=== PATIENT | male | born 1945 | race Asian ===

== ENCOUNTER 2017-03-08 16:49 | Emergency (ER) | payer OTHER, MEDICARE, MEDICAID ==
[~2017-03-08] VITALS: Ht 165.1 cm; Wt 52.3 kg
[~2017-03-08 16:49] MED LIST: ADV250INHA IH; ALBU8.5H4 IH; CETI10CA PO; COR200 PO; COR625 PO; COZ25 PO; DIGO125T PO; IPRA30SP NS; IPRA3AMP HHN; SMV40T PO; SPIR25TA PO; SYN.1T2 PO; TAM4 PO; TOPR25T PO; VITA1TAB31 PO
[2017-03-08 17:02] VITALS: BP 153/81; PULSE 75; RESP 24; O2SAT 96
--- NOTE | 2017-03-08 18:20 | ED.REPORT ---
HPI-Dyspnea / Wheezing Date of Service March 08, 2017 ED Provider: Landen Emery DO A 71 year old male with a history of COPD, CHF, and intraparenchymal hemorrhage of the brain presents to the ED with shortness of breath onset yesterday. The patient also reports pleuritic chest pain. He denies cough, fever, or other symptoms. The patient has had similar symptoms in the past and has used a Symbicort inhaler, with relief. Nursing Notes Stated Complaint: HARD TO BREATH Chief Complaint: Respiratory Complaints Nursing Notes Reviewed: Yes Allergies: Coded Allergies: piperacillin sodium (Verified Allergy, Severe, Red in color, rash, happened in ER. , 03/08/17) Had to treat reaction in ER r/t allergy to Zosyn. tazobactam sodium (Verified Allergy, Severe, Red in color, rash, happened in ER. , 03/08/17) Had to treat reaction in ER r/t allergy to Zosyn. Scheduled Albuterol Sulfate/Ipratropium (Duoneb 2.5-0.5MG/3ML Soln) 3 Ml Nebu 3 ML HHN BID Amiodarone-Expunged Drug, Do Not Renew! (Amiodarone-Expunged Drug, Do Not Renew! ) 200 Mg Tablet 200 MG PO DAILY Carvedilol-Expunged Drug, Do Not Renew! (Carvedilol-Expunged Drug, Do Not Renew! ) 6.25 Mg Tablet 6.25 MG PO BIDWM Cetirizine-Expunged Drug, Do Not Renew! (Cetirizine-Expunged Drug, Do Not Renew! ) 10 Mg Capsule 10 MG PO DAILY Digoxin-Expunged Drug, Do Not Renew! (Digoxin-Expunged Drug, Do Not Renew!) 125 Mcg Tablet 0.125 MG PO DAILY Flutic/Salmet-Expunged Drug, Do Not Renew! (Advair 250/50-Expunged Drug, Do Not Renew!) 250 Mcg/50 Mcg Disk 250 MCG IH BID Ipratropium-Expunged Drug, Do Not Renew! (Ipratropium-Expunged Drug, Do Not Renew!) 345 [place]/30 Ml [place] 1 SPRAY NS DAILY Levothyroxine-Expunged Drug, Do Not Renew! (Synthroid-Expunged Drug, Do Not Renew!) 100 Mcg Tablet 0.05 MG PO DAILYAC 0.1 MG = 100 MCG Losartan-Expunged Drug, Do Not Renew! (Losartan-Expunged Drug, Do Not Renew!) 25 Mg Tablet 25 MG PO DAILY Therapeutic Substitue for all ARB class drugs Metoprolol Suc-Expunged Drug, Do Not Renew! (Metoprolol Suc-Expunged Drug, Do Not Renew!) 25 Mg Tber 12.5 MG PO DAILY Simvastatin-Expunged Drug, Choose New Med! (Simvastatin-Expunged Drug, Choose New Med!) 40 Mg Tablet 20 MG PO HS Spironolactone-Expunged Drug, Do Not Renew! (Spironolactone-Expunged Drug, Do Not Renew!) 25 Mg Tablet 25 MG PO DAILY Tamsulosin-Expunged Drug, Do Not Renew! (Flomax-Expunged Drug, Do Not Renew!) 0.4 Mg Capsule 0.4 MG PO HS Vitamin B Complex (Balanced B-100) 1 Each Tablet 1 EACH PO DAILY Scheduled PRN Albuterol-Expunged Drug, Do Not Renew! (Albuterol-Expunged Drug, Do Not Renew!) 8.5 Gm Hfa.aer.ad 2 PUFFS IH Q4 PRN PRN 2 PUFFS EVERY 4 HOURS NEEDED FOR SHORTNESS OF BREATH. General Time Seen by MD: 18:11 Chief Complaint Shortness of breath Hx Obtained From: Patient Arrived By: Walk-in Sudden in Onset?: No Onset Occurred: Yesterday Symptom Duration: Since onset Location: : Chest left: Chest right Quality: Painful, Pleuritic Severity: Current: Moderate Severity: Maximum: Moderate Pertinent Negative: Relieved by nothing Context Related History: Reports: COPD, Congestive heart failure Recent Healthcare: No recent doctor visit Similar Sx Previous: Yes Past Medical History Past Medical History COPD CHF Intraparenchymal hemorrhage of brain Past Surgical History Cardiac pacemaker placement Smoking History Former Smoker Social History Other Social History: Good social support Ambulatory Status Independent Review of Systems Constitutional: Denies: Fever Respiratory: Reports: Pleuritic pain, Shortness of breath, Denies: Non-productive cough Cardiovascular: Reports: Chest pain Complete sys rev & neg: except as marked. GI: Denies: Diarrhea, Vomiting Physical Exam Initial Vital Signs Vital Signs (First) Date Time Temp Pulse Resp B/P Pulse Ox O2 Delivery O2 Flow Rate FiO2 5/8/17 17:02 75 24 153/81 96 Room Air Initial VS: Reviewed Head / Eyes: Atraumatic, Normocephalic ENT: Conjunctiva normal, No scleral icterus Skin: Warm, Dry, No cyanosis Neurologic: Alert, Oriented, Nonfocal Psychiatric: Mood/affect normal, Behavior normal, Normal thought content General/Constitutional: Awake, Alert Distress / Hydration: Positive: Distress moderate Neck: Supple, Full range of motion Respiratory / Chest: No rales, No rhonchi, No wheezing Diminished Breath Sounds: Positive: Decreased bilateral Pursed lip breathing Barrel chest Cardiovascular: Heart rate NL, Regular rhythm Heart Sounds / Murmur: Positive: Systolic murmur present.. (Ejection murmur) Lower Extremity / Pelvis / MS: Inspection NL, No edema Interpretation & Diagnostics Lab Results Interpretation Result Diagram: 03/08/17192903/08/171929 Test 03/08/17 19:30 03/08/17 21:16 03/08/17 21:40 White Blood Count 9.7th/mm3 (3.8-10.1) Red Blood Count 5.44mil/mm3 (4.40-5.80) Hemoglobin 15.3g/dL (13.8-17.2) Hematocrit 46.5% (41.0-50.0) Mean Corpuscular Volume 85.5fL (81-100) Mean Corpuscular Hemoglobin 28.1pg (27.0-35.0) Mean Corpuscular Hemoglobin Concent 32.9% (32.0-37.0) Red Cell Distribution Width 14.1% (12.3-15.4) Platelet Count 174bil/L (150-400) Neutrophils (%) (Auto) 72.3% (40-74) Lymphocytes (%) (Auto) 17.6% (14-46) Monocytes (%) (Auto) 8.4% (4-12) Eosinophils (%) (Auto) 1.3% (0-5) Basophils (%) (Auto) 0.2% (0-3) Prothrombin Time 10.2sec (8.1-12.5) Prothromb Time International Ratio 0.95ratio D-Dimer 1.25mg/L FEU (<0.50) Sodium Level 140mEq/L (134-144) Potassium Level 5.2mEq/L (3.5-5.2) Chloride Level 99mEq/L (97-108) Carbon Dioxide Level 26mmol/L (18-29) Blood Urea Nitrogen 23mg/dL (8-27) Creatinine 1.22mg/dL (0.76-1.27) Estimat Glomerular Filtration Rate 62mL/min (>59) Glucose Level 106mg/dL (60-99) Calcium Level 9.8mg/dL (8.5-10.1) Total Bilirubin 0.8mg/dL (0.0-1.2) Aspartate Amino Transf (AST/SGOT) 68U/L (0-50) Alanine Aminotransferase (ALT/SGPT) 86U/L (0-44) Alkaline Phosphatase 110U/L (25-160) Pro-B-Type Natriuretic Peptide 4680pg/mL (0-376) Total Protein 7.7g/dL (6.4-8.4) Albumin 4.2g/dL (3.4-5.0) Troponin T 0.010ug/L (0.0-0.011) Urine Color Straw (YELLOW) Urine Appearance Clear (CLEAR,HAZY) Urine pH 5.5 (5.0-8.0) Urine Specific [place] 1.006 (1.003-1.035) Urine Protein Negativemg/dL (NEG,TRACE) Urine Glucose (UA) Negativemg/dL (NEGATIVE) Urine Ketones Negativemg/dL (NEGATIVE) Urine Occult Blood Trace (NEGATIVE) Urine Nitrite Negative (NEGATIVE) Urine Bilirubin Negative (NEGATIVE) Urine Urobilinogen Normalmg/dL (NORMAL) Urine Leukocyte Esterase Negative (NEGATIVE) Urine RBC 3-10/hpf (0-2) Urine WBC 0-5/hpf (0-5) Urine Epithelial Cells Occasional/hpf (NONE-MOD) Urine Crystals None seen (NONE SEEN) Urine Bacteria None/hpf (NONE-FEW) Urine Hyaline Casts None/lpf (NONE) Urine Granular Casts None seen (NONE SEEN) Urine Waxy Casts None seen (NONE SEEN) Urine Red Blood Cell Casts None seen (NONE SEEN) Urine White Blood Cell Casts None seen (NONE SEEN) Urine Mucus None seen (None Seen) Urine Trichomonas None seen (NONE SEEN) Urine Yeast None (NONE SEEN) Urine Culture Reflexed Not indicated ECG Interpretation ECG Interpretation: Atrial flutter with predominant 4:1 AV block Right axis deviation Prolonged QT interval Time: 18:39 Interpreted by: ED physician X-Ray Chest Interpretation Chest Xray Interpretation: IMPRESSION: Stable interval exam compared to 03/07/17 demonstrating chronic interstitial prominence. Dictated by: Ann Mooney M.D. on 03/08/2017 at 19:00 View: Portable, 1 view Interpretation / Wet Read by: Interpret - Radiologist CT Chest Interpretation CONCLUSION: No evidence of pulmonary embolism. Emphysema and a 1 cm spiculated nodule in the right upper lobe. Neoplasm must be excluded. Moderate cardiomegaly. Report transmitted to ED by Orin Rossi M.D. at 03/08/2017 - 11:03:15 PM PDT Study type: CT pulm angiogram Interpretation / Wet Read by: Interpret - Radiologist Re-Eval/Medical Decision Med Decision/Clinical Course 71-year-old male with a history of CHF and COPD presents with shortness of breath. He has had difficulty catching his breath for the past 2 days. He also has a mild cough. On examination he had pursed lip breathing diminished breath sounds bilaterally. He was not acutely toxic in appearance. He was treated with DuoNeb, steroids and diuretics. He improved dramatically. At discharge he could take nice deep breath. His lungs were clear and he was asymptomatic. He preferred to be discharged home. Pulmonary emboli was ruled out. Myocardial infarction was ruled out. I think that he will do well on the outpatient basis. I will place him on a short course of prednisone. His albuterol has been refilled and I will placement a course of antibiotics. I do recommend very close outpatient follow-up. Source of Hx: Old records Re-Evaluation/Progress #1: Time of Eval: 20:47 Re-Evaluation/Progress Note: Breath sounds have much improved. Discussed with patient plan for CT. Re-Evaluation/Progress #2: Time of Eval: 23:00 Patient Status: Condition improved Re-Evaluation/Progress Note: Discussed with patient x-ray, CT, and lab results, diagnosis, and plan for discharge. Follow-up and return to the ER instructions given. Patient agrees with plan for care and all questions were addressed. Counseled Regarding: Diagnosis, Lab results, Need for follow-up, When/why to return to ED Discharge & Departure Impression: Primary Impression: Acute exacerbation of chronic obstructive pulmonary disease Disposition: Home Discharge Condition All VS Reviewed: Yes Condition: Improved Patient Instructions: COPD (Chronic Obstructive Pulmonary Disease) (ED) Additional Instructions: Thank you for entrusting us with your care. Albuterol 2 puffs every 2-3 hours as needed. Prednisone daily for three days. Doxycycline twice daily for seven days. Call your primary care provider tomorrow for a follow-up appointment. You CT scan showed a right upper lobe nodule. Follow-up is necessary to determine whether or not this is benign. Return to the ER with any new or worsening symptoms. Referrals: Soha Carrillo MD (PCP) Scribe Attestation Portions of this note were transcribed by Kacie Camilo. I, Dr. Emery, personally performed the history, physical exam, and medical decision-making; I reviewed and confirmed the accuracy of the information in the transcribed note. Signed by: Steffanie Freitas, 03/09/2017, 01:15 copies to: Soha Carrillo MD, Todd P DO March 08, 2017 18:20 KACIE CAMILO March 08, 2017 18:36
[2017-03-08] MEDS ORDERED: MethylprednisoLONE Sodium Succinate 62.5 mg/mL 2 mL Inj IVPUSH ONE (18:35)
[2017-03-08] MEDS ORDERED: Albuterol-Ipratropium 3 mL Inhalation Solution NEB ONE (18:35)
--- NOTE | 2017-03-08 19:03 | DRSVH ---
PROCEDURE: X-RAY CHEST ONE VIEW, PORTABLE ([id number]) INDICATIONS: SHORTNESS OF BREATH TECHNIQUE: One view of the chest was acquired. COMPARISON: [facility], , CHEST 2VW, 03/07/2015, 12:09. FINDINGS: Surgical changes and devices: Pacemaker. Lungs and pleura: No pleural effusions or pneumothorax. Chronic interstitial changes are present. Ca lcified granuloma is present in the left base. There is unchanged trace blunting of the right costoph renic angle. Mediastinum: Mediastinal contours appear normal. Heart size is enlarged. Bones and chest wall: No suspicious bony lesions. Overlying soft tissues appear unremarkable. IMPRESSION: Stable interval exam compared to 03/07/17 demonstrating chronic interstitial prominence. Dictated by: Ann Mooney M.D. on 03/08/2017 at 19:00 Approved by: Ann Mooney M.D. on 03/08/2017 at 19:02
[2017-03-08 19:14] VITALS: PULSE 69; RESP 20; O2SAT 96
[2017-03-08 19:36] LABS: BASOPHILS % (AUTO) 0.2 % (0-3); EOSINOPHILS % (AUTO) 1.3 % (0-5); MONOCYTES % (AUTO) 8.4 % (4-12); Mean Corpuscular Hemoglobin 28.1 pg (27.0-35.0); Mean Corpuscular Volume 85.5 fL (81-100); NEUTROPHILS % (AUTO) 72.3 % (40-74); Platelet Count 174 bil/L (150-400)
[2017-03-08 19:53] LABS: INR 0.95 ratio
[2017-03-08 19:59] LABS: TROPONIN T 0.01 ug/L (0.0-0.011)
[2017-03-08] MEDS ORDERED: Furosemide 10 mg/mL 4 mL Inj IVPUSH ONE (20:35)
[2017-03-08 21:15] VITALS: BP 143/72; PULSE 57; RESP 20; O2SAT 96
[2017-03-08 22:08] LABS: APPEARANCE,URINE CLEAR (CLEAR,HAZY); COLOR,URINE STRAW (YELLOW); OCCULT BLOOD,URINE TRACE (NEGATIVE); PH,URINE 5.5 (5.0-8.0); UROBILINOGEN,URINE NORMAL (NORMAL)
[2017-03-08 22:58] VITALS: BP 123/67; PULSE 68; RESP 16; O2SAT 97
[2017-03-08] MEDS ORDERED: _Proair 200 Puff/8.5 GM Inhaler INHALATION PRN (23:15)
[2017-03-09 00:01] VITALS: BP 123/67; PULSE 68; RESP 16; O2SAT 97
--- NOTE | 2017-03-09 11:16 | DRSVH ---
PROCEDURE: CT ANGIO CHEST PULMONARY EMBOLISM ([id number]) INDICATIONS: pleuritic pain, elevated ddimer TECHNIQUE: After the administration of intravenous contrast, 2 mm thick sections acquired from the pulmonary api shanell to the posterior costophrenic angles. 3-dimensional maximum intensity projection (MIP) coronal a nd sagittal reformats were then acquired through the thorax. For radiation dose reduction, the follo wing was used: automated exposure control, adjustment of mA and/or kV according to patient size. COMPARISON: [facility], CT, CHEST ANGIO-PE, 09/11/2012, 17:30. FINDINGS: Image quality: Excellent. Pulmonary arteries: Pulmonary arteries are normal in size, and demonstrate no intraluminal filling d efects to suggest central pulmonary embolism. Lungs and pleura: Emphysematous changes are present. There is a 12 mm nodular opacity, somewhat spicu lated in the posterior aspect of the right upper lobe, new compared to 09/11/12.. No pleural effusio ns or pneumothorax. Central and peripheral airways are patent. Mediastinum: Heart size is mildly enlarged, without pericardial effusion. No mediastinal or hilar a denopathy. Thoracic aorta is normal in caliber and enhancement. Esophagus is normal in caliber, wit hout hiatal hernia. Bones and chest wall: No suspicious bony lesions. Ribs and thoracic spine appear intact throughout. Thyroid gland is unremarkable within visualized portions. No axillary or supraclavicular adenopath y. Abdomen: Visualized upper abdominal solid organs appear normal in the early arterial phase of enhanc ement. IMPRESSION: 1. No evidence of pulmonary embolism. 2. Emphysematous changes. 3. 12 mm spiculated nodule within the right upper lobe. Finding is concerning for malignancy. Recomm end further evaluation with PET scan or percutaneous biopsy. Dictated by: Ann Mooney M.D. on 03/09/2017 at 11:02 Approved by: Ann Mooney M.D. on 03/09/2017 at 11:15
== END 2017-03-09 00:02 | disposition home or self-care (01) ==
LOC: SED 16:49
DX: J44.1 Chronic obstructive pulmonary disease with (acute) exacerbation (principal); I50.9 Heart failure, unspecified; Z86.73 Personal history of transient ischemic attack (TIA), and cerebral infarction without residual deficits; Z95.0 Presence of cardiac pacemaker; Z86.79 Personal history of other diseases of the circulatory system; Z87.891 Personal history of nicotine dependence; Z79.51 Long term (current) use of inhaled steroids; Z88.1 Allergy status to other antibiotic agents; Z88.8 Allergy status to other drugs, medicaments and biological substances
CPT/HCPCS: 36415; 71010; 71275; 80053; 81000; 83880; 84484; 85025; 85378; 85610; 93005; 94664; 96374; 96375; 99285; J1940; J2930; J7620; Q9967